=== PATIENT | female | born 1970 | race Caucasian/White ===

== ENCOUNTER 2016-06-06 03:07 | Observation (INO) ==
[2016-06-06] MEDS ORDERED: HYDROmorphone 2 MG/1 ML VIAL IV STA (04:55)
[2016-06-06] MEDS ORDERED: ONDANSETRON 4 MG/2 ML VIAL IV STA (04:55)
--- NOTE | 2016-06-06 04:59 | EKG Report ---
Stationary ECG Study [facility] Test Date: 06/06/2016 3:15:09 AM Pat Name: BOGDAN KLINE Department: Room: Gender: F Support Assistant: : 1970 Requested by: Katharine Toledo Order Number: [id number] Reading MD: VICKI FARLEY Intervals [place] Rate: 60 P: 62 ND: 119 QRS: 50 QRSD: 78 T: 12 QT: 417 QTc: 418 Interpretive Statements SINUS RHYTHM WITH SINUS ARRHYTHMIA WITH SHORT [place] INTERVAL Electronically Signed On 06-08-16 08:44:19 CDT by VICKI FARLEY [id number]
[2016-06-06] MEDS ORDERED: HYDROmorphone 2 MG/1 ML VIAL ONE (05:39)
[2016-06-06] MEDS ORDERED: ONDANSETRON 4 MG/2 ML VIAL ONE (05:40)
[2016-06-06] MEDS ORDERED: HYDROmorphone 2 MG/1 ML VIAL IV PRN (06:18)
--- NOTE | 2016-06-06 06:18 | Emergency Department Note ---
Steve Coughlin Mantricia, am scribing for, and in the presence of, Katharine Toledo DO 05:38. ITre Catherine, DO, personally performed the services described in this documentation, ascribed by Ifeoma Wilson in my presence, and it is both accurate and complete 618 . Arrival - Arrival Chief Complaint: Chest Pain ED Nursing Triage Note: Patient is a transfer from [facility] for further evaluation of chest pain. Hx of WPW and cervical cancer. Recieved GI cocktail, 4mg morphine, 4mg zofran, nitro tab, rocephin 1 gram, protonix 40mg, ASA 325mg, and inderal 40mg at previous facility. Denies nausea and vomiting at this time. Rates chest pain as a 6 on a scale from 0-10. Mode of Arrival: Stretcher Limitations: No Limitations Source: Patient Time Seen by Provider: 06/06/16 04:01 - History of Present Illness HPI Narrative: Pt is a 45 y/o white female arriving to ED by EMS with c/o chest pain that onset yesterday. Pt stated that she thought if she just went to work then her pain would go away, but it did not. She described pain as "something laying heavily on her chest." Along with this, pt has had a headache and nausea for 2 days. She is a transfer from [facility] for further evaluation of her chest pain. Pt has a Hx of HTN, WPW, and cervical cancer but denies DM and HLD.. She is currently on no medications for WCW. She was given a stress test by Dr. Dunlap approximately 2-3 years ago. Pt admits to smoking at least 1 pack of cigarettes per day. Pt has a FHx of heart problems. Onset (ago): hour(s) Consistency: constant Severity: mild Severity scale (1-10): 4 Date of Last Menstrual Period: hysterectomy Review of System - Review of System 12 point system: reviewed and no additional remarkable complaints except as stated - Review of System Constitutional: Absent: chills, diaphoresis, fever Eyes: Absent: discharge, pain, redness Head/Ears/Nose/Throat: Absent: earache Respiratory: Absent: cough, respiratory distress, wheezing Cardiovascular: Present: chest pain. Absent: palpitations, dyspnea on exertion Gastrointestinal: Absent: abdominal pain, nausea, vomiting, diarrhea Genitourinary female: Absent: abnormal menses, dysuria Musculoskeletal: Absent: arm pain, back pain, lower back pain, leg pain, neck pain Skin: Absent: rash, lesions Neurological: Absent: headache, weakness Psychiatric: Absent: anxiety, depression Medical,Surgical,& Family Hx - Medical History Cardio: History of: Cardiovascular Problems - Surgical History Surgical History: noncontributory - Family History Family History: Reports;: Family Heart Disease, Family Hypertension - Social History Smoking Status: Current every day smoker Have you smoked in the last 12 months: Yes Frequency of Alcohol Use: None Type of Drug Use: None Marital Status: Lives With:: Spouse Functional capacity: independent ambulation Exam Vital Signs: Vital Signs Temperature 97.9 F 06/06/16 03:11 Pulse Rate 61 06/06/16 03:11 Respiratory Rate 15 06/06/16 03:25 Blood Pressure 132/84 06/06/16 03:11 O2 Sat by Pulse Oximetry 98 06/06/16 03:11 - General General appearance: alert, in distress (States her chest hurts) - Head Head exam: Present: atraumatic, normocephalic, normal inspection - Eye Eye exam: Present: normal appearance, PERRL, EOMI - ENT ENT exam: Present: normal exam, normal oropharynx, mucous membranes moist, TM's normal bilaterally, normal external ear exam - Neck Neck exam: Present: normal inspection, full ROM, trachea midline. Absent: tenderness - Chest Chest inspection: Present: normal inspection, symmetric chest wall rise. Absent : tenderness - Respiratory Respiratory exam: Present: normal lung sounds bilaterally - Cardiovascular Cardiovascular exam: Present: regular rate, normal rhythm, normal heart sounds - Abdominal Exam Abdominal exam: Present: soft, normal bowel sounds. Absent: distention, tenderness, guarding, rebound - Extremities Exam Extremities exam: Present: normal inspection, full ROM, normal capillary refill. Absent: tenderness, pedal edema - Back Exam Back exam: Present: normal inspection, full ROM. Absent: tenderness - Neurological Exam Neurological exam: Present: alert, oriented X3, CN II-XII intact, normal gait - Psychiatric Psychiatric exam: Present: normal affect, normal mood - Skin Skin exam: Present: warm, dry, intact, normal color Course Course Narrative: This is a 45-year-old female comes in the ER today as a transfer from another facility for evaluation of chest pain. She has a history of Jennifer-Parkinson- White and saw Dr. Dunlap about 3 or 4 years ago at that time she had a stress test and stated they did not find anything except the arrhythmia. She reports her pain started yesterday and has been persistent. She was evaluated at the other facility where her EKG and her enzymes were negative but they were having trouble managing her pain. She was sent here for further evaluation and cardiac treatment. Physical exam the patient is awake alert her vital signs are stable HEENT exam is normal her neck is supple heart is regular rate and rhythm her lungs are clear in the anterior kwan are abdomen is rounded soft nontender I cannot reproduce her pain with palpation in the epigastric area. Her abdomen is otherwise soft nontender extremities are intact her neurologic exam is nonfocal treatment included an EKG which does not show any acute processing. I gave her some different pain medication that she is doing a little better at this time. I did place a phone call to Dr. Lozada who is on -call for cardiology we will be placing the patient in observation for cardiac rule out. - Consultations Consultation #1: Dr. Lozada called and we discussed the case - patient will be admitted for cardiac observation Time: 06:17 Results - Labs Lab Results: I have reviewed the patients labs Labs: reviewed lab from the other facility - EKG EKG results: interpreted by DENNIS CLARK, sinus rhythm Disposition Clinical Impression: Chest pain Case discussed with: patient Disposition: Still a Patient Condition: Stable Time of Disposition: 06:17
--- NOTE | 2016-06-06 08:07 | EKG Report ---
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
[2016-06-06] MEDS ORDERED: FAMOTIDINE 20 MG TABLET PO ONE (10:29)
[2016-06-06] MEDS ORDERED: PANTOPRAZOLE 40 MG TABLET PO SCH (10:30)
--- NOTE | 2016-06-06 12:10 | Cardiology History & Physical ---
Assessment and Plan (1) Chest pain Status: Acute Current Visit: Yes (2) WPW (Netrr-Apvqxjeni-Kparm syndrome) Status: Chronic Current Visit: Yes (3) Hypertension Status: Chronic Current Visit: Yes History of Present Illness Chief complaint: cp History of present illness: Ms. Rodriguez is a 45 year old female with a history of Ghrkj-Szedzptai-Cgojh status post ablation at the age of 19. She also has a history of hypertension. She presented to the emergency room with chest discomfort. She was awoken with symptoms of heart racing, and then had a significant chest pressure. Her symptoms continue to wax and wane for many hours throughout the day, they were not alleviated with aspirin or antacids. There were no clear triggers, alleviators or associated symptoms. She came to the emergency room for further evaluation and treatment. Nitroglycerin did not affect her symptoms per se. However, they resolve spontaneously. She has not experienced a these before, and they are not recurring. She does not take any medications routinely because she does not have health insurance and she was unable to "keep up with doctor visits". She has not been checking her blood pressure at home. It is currently not elevated here. Impression: 1. Chest pressure-in general her symptoms are atypical of cardiac disease. She has ruled out for myocardial infarction. We will treat her with a proton pump inhibitor and have her ambulate the hallways. If she is feeling better we will discharge her home later today. 2. Hypertension-she is currently not hypertensive and not on medications. 3. Okyyk-Vctebqprq-Ickih-she is status post ablation in the remote past. We will have to monitor her symptoms of palpitations. 4. Medication noncompliance. Home Medications Medication Instructions Recorded Confirmed Type No Known Home Medications [No 06/06/16 06/06/16 History Known Home Medications] Allergies Allergy/AdvReac Type Severity Reaction Status Date / Time codeine AdvReac Cramping Verified 06/06/16 07:36 of the Muscles 12 point system: reviewed and no additional remarkable complaints except as stated Medical,Surgical,& Family Hx - Medical History Cardio: History of: Cardiac Dysrhythmia (WPW s/p ablation at age 19), Hypertension, Cardiovascular Problems ([place]-ABLATION DONE IN [place].) Neurology: History of: Cerebrovascular Accident (LEFT SIDED WEAKNESS) Musculoskeletal: History of: Back/Neck Problems (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) Other: History of: Cancer (CERVICIAL CANCER) - Surgical History Abdominal Surgeries: Surgical HX of: Appendectomy, Cholecystectomy, Hernia Repair Reproductive Surgeries: Surgical HX of;: Hysterectomy (PARITAL) - Family History Family History: Reports;: Family Diabetes, Family Heart Disease, Family Hypertension Denies;: Family Cancer, Family Stroke - Social History Smoking Status: Current every day smoker Frequency of Alcohol Use: None Type of Drug Use: None Marital Status: Lives With:: Spouse Functional capacity: independent ambulation Cardiology Physical Exam - Constitutional Vitals: Vital Signs Temp Pulse Resp BP Pulse Ox 98 F 72 20 95/54 90 L 06/06/16 11:57 06/06/16 11:57 06/06/16 11:57 06/06/16 11:57 06/06/16 11:57 Intake and Output 06/05/16 06/06/16 06/06/16 23:59 07:59 15:59 Other: Weight 71.668 kg Patient Weight 06/06/16 23:59 Weight 71.668 kg Exam: General appearance: normal weight, no acute distress - Head Head exam: Present: normal inspection, normocephalic, atraumatic. Absent: hematoma, laceration - Eye Eye exam: Present: EOMI. Absent: conjunctival injection, nystagmus, periorbital swelling, scleral icterus, laceration to eyelids Pupils: Present: PERRL. Absent: constricted, dilated, fixed, irregular, unequal - ENT ENT exam: Present: normal exam, normal external ear exam - Neck Neck exam: Present: normal inspection. Absent: lymphadenopathy, meningismus, tenderness, thyromegaly - Respiratory Respiratory exam: Present: clear to auscultation bilaterally. Absent: accessory muscle use, chest wall tenderness - Cardiovascular Cardiovascular exam: Present: regular rate and rhythm. Absent: carotid bruit, gallop, JVD, rubs - GI/Abdominal GI/Abdominal exam: Present: normal bowel sounds, soft. Absent: distended, firm , guarding, hernia, mass, tenderness, rebound. - Extremities Exam Extremities exam: Present: normal inspection, normal capillary refill. Absent: calf tenderness, edema - Back Exam Back exam: Present: normal inspection. Absent: muscle spasm, vertebral tenderness - Neurological Exam Neurological exam: Present: alert, oriented X3, grossly intact without resting or intention tremor - Psychiatric Psychiatric exam: Present: normal affect, normal mood - Skin Skin exam: Present: normal color, warm, dry, intact. Absent: cyanosis, diaphoretic, rash, urticaria Result/EKG - Labs Lab Results: I have reviewed the past 24 hour labs (These are reviewed from the outside hospital papers) Labs: Laboratory Results - last 24 hr 06/06/16 07:36 Troponin I < 0.015 - EKG EKG results: interpreted by me, sinus rhythm
--- NOTE | 2016-06-06 12:18 | EKG Report ---
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
[2016-06-06] MEDS ORDERED: KETOROLAC 30 MG/1 ML VIAL IV ONE (14:19)
--- NOTE | 2016-06-06 15:14 | XRay Report ---
Exam: XR chest 2V Indication: midline chest pain Comparison study: 01/22/2009 Findings: The heart, mediastinum and bony structures are stable from prior. There is no focal consolidation, pneumothorax or pleural effusion identified. Impression: No acute cardiopulmonary process. No significant change from prior. PROCEDURE INTERPRETED AT [facility] DEPARTMENT OF RADIOLOGY Final Report Signed by: Cezar Witt
[2016-06-06] MEDS: ASPIRIN CHEW 81 MG TABLET PO SCH (15:31)
[2016-06-06] MEDS: ONDANSETRON 4 MG/2 ML VIAL IV PRN (15:32)
--- NOTE | 2016-06-06 16:25 | ECHO Report ---
Nia Rodriguez Exam Date: 06/06/2016 15:20 Referring Physician: Technologist: Nia Coates LRCP Age: 45 Ht (in): 62 Wt (lb): 158 Gender: F Exam Location: [facility] Echo Indications: chest pain, WPW, hypertension BP: 95 / 54 HR: 72 Rhythm: Sinus Technical Quality: Fair IMPRESSIONS Normal LV systolic and diastolic function, ejection fraction 55-60%. Mild tricuspid regurgitation. MEASUREMENTS (Male / Female) Normal Values 2D ECHO LV Diastolic Diameter PLAX 4.0 cm 4.2 - 5.9 / 3.9 - 5.3 cm LV Systolic Diameter PLAX 2.6 cm LV Fractional Shortening PLAX 35.3 % IVS Diastolic Thickness 1.1 cm 0.6 - 1.0 / 0.6 - 0.9 cm LVPW Diastolic Thickness 1.1 cm 0.6 - 1.0 / 0.6 - 0.9 cm RV Internal Dim ED PLAX 1.8 cm Aortic Root Diameter 2.0 cm LA Systolic Diameter LX 3.1 cm 3.0 - 4.0 / 2.7 - 3.8 cm DOPPLER TR Peak Velocity 242.0 cm/s TR Peak Gradient 23.4 mmHg FINDINGS Left Ventricle Normal left ventricular cavity size. Left ventricular ejection fraction is estimated at 55-60%. Right Ventricle Normal right ventricular size and systolic function. Right Atrium Normal right atrial size. Left Atrium Normal left atrial size. Mitral Valve Mild mitral valve sclerosis. Aortic Valve The aortic valve is trileaflet, delicate and has normal motion. Tricuspid Valve Morphologically normal tricuspid valve. Mild tricuspid valve regurgitation. Tricuspid regurgitation velocities suggest a PAP of 23.4 mmHg + RAP. Pulmonic Valve Morphologically normal pulmonic valve. Pericardium No pericardial effusion. Aorta Normal size aortic root and proximal ascending aorta. Cyndy Lozada MD (Electronically Signed) Final Date: 06 June 2016 16:24
[2016-06-06] MEDS: PANTOPRAZOLE 40 MG TABLET PO SCH (21:48)
[2016-06-07 04:36] LABS: Basophils % 0.1 % (0.0-0.8); Eosinophils # 0.1 10*3/uL (0.0-0.87); Eosinophils % 0.6 % (0.00-10.9); Hematocrit 36.7 VOL% (35.7-47.0); Hemoglobin 12.2 GM/DL (12.0-16.0); Immature Granulocytes % 0.4 %; Immature Granulocytes Absolute 0.04 #; Lymphocytes # 3.3 10*3/uL (1.4-4.0); Lymphocytes % 35.3 % (21.3-54.2); Mean Corpuscular HGB Conc 33.2 GM/DL (32-36); Mean Corpuscular Hemoglobin 29 PG (27-34); Mean Corpuscular Volume 87.6 FL (87-102); Mean Platelet Volume 12.2 FL (9.6-12.0); Monocytes # 0.7 10*3/uL (0.11-0.8); Monocytes % 7.1 % (1.7-12.7); Neutrophils # 5.2 10*3/uL (1.4-7.4); Neutrophils % 56.5 % (38.7-73.9); Platelet Count 168 T/CUMM (130-400); Red Blood Count 4.19 MC/CUMM (3.8-5.5); Red Cell Distribution Width 12.9 % (9.3-17.3); White Blood Count 9.2 T/CUMM (4-12)
[2016-06-07 05:08] LABS: Calcium 8.4 MG/DL (8.5-10.1); Magnesium 2.2 MG/DL (1.8-2.4); Osmolality,Calculated 278.5 MOS/KG (273-304); Potassium 4.4 MMOL/L (3.5-5.1); Risk Ratio 4.11
--- NOTE | 2016-06-07 07:49 | EKG Report ---
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
[2016-06-07] MEDS: ONDANSETRON 4 MG/2 ML VIAL IV PRN ×2 (08:23→14:38)
[2016-06-07] MEDS: PANTOPRAZOLE 40 MG TABLET PO SCH (08:23)
[2016-06-07] MEDS: ASPIRIN CHEW 81 MG TABLET PO SCH (08:23)
[2016-06-07] MEDS ORDERED: ACETAMINOPHEN 325 MG TABLET PO PRN (09:56)
[2016-06-07] MEDS ORDERED: ONDANSETRON 4 MG/2 ML VIAL IV ONE (10:02)
[2016-06-07] MEDS: MEPERIDINE 25 MG/1 ML VIAL IV PRN ×2 (10:10→14:38)
--- NOTE | 2016-06-07 16:16 | Discharge Summary ---
Hospital Course - Hospital Course Hospital Course: The patient is a 45-year-old white female with a history of WPW, status post ablation in the remote past. She was admitted to the hospital with atypical chest pain. She ruled out for myocardial infarction, and echocardiogram was unremarkable. She had an ongoing migraine for 4 days and required IV pain medication to alleviate this. She is going home in stable condition and will follow up with Dr. Dunlap as an outpatient. Noninvasive stress testing can be considered. Diagnosis - Discharge Diagnosis (1) Chest pain Status: Acute (2) WPW (Wwtaf-Eabihtguy-Jwrkt syndrome) Status: Chronic (3) Hypertension Status: Chronic Discharge Plan - Discharge Data Disposition: Disch To Home/Self Care Discharge Diet: heart healthy Hygiene: no restrictions Driving: no restrictions - Discharge Medications New Aspirin Chew Tab 81 mg PO DAILY #30 tablet Pantoprazole Tab [Protonix Tab] 40 mg PO BID #30 tablet - Follow Up or Referral Follow Up: Miguel Dunlap MD [Physician] - 2 Weeks - Forms/Instructions Additional Discharge Instructions: Please call in Patient Rx. No pharmacy is in computer. Exam - Constitutional Vitals: Period Temp Pulse Resp BP Sys/[place] Pulse Ox Last 24 Hr 97.5 F-98.7 F 68-78 16-20 110-128/59-69 94-96 Exam: General appearance: normal weight, no acute distress - Head Head exam: Present: normal inspection, normocephalic, atraumatic. Absent: hematoma, laceration - Eye Eye exam: Present: EOMI. Absent: conjunctival injection, nystagmus, periorbital swelling, scleral icterus, laceration to eyelids Pupils: Present: PERRL. Absent: constricted, dilated, fixed, irregular, unequal - ENT ENT exam: Present: normal exam, normal external ear exam - Neck Neck exam: Present: normal inspection. Absent: lymphadenopathy, meningismus, tenderness, thyromegaly - Respiratory Respiratory exam: Present: clear to auscultation bilaterally. Absent: accessory muscle use, chest wall tenderness - Cardiovascular Cardiovascular exam: Present: regular rate and rhythm. Absent: carotid bruit, gallop, JVD, rubs - GI/Abdominal GI/Abdominal exam: Present: normal bowel sounds, soft. Absent: distended, firm , guarding, hernia, mass, tenderness, rebound. - Extremities Exam Extremities exam: Present: normal inspection, normal capillary refill. Absent: calf tenderness, edema - Back Exam Back exam: Present: normal inspection. Absent: muscle spasm, vertebral tenderness - Neurological Exam Neurological exam: Present: alert, oriented X3, grossly intact without resting or intention tremor - Psychiatric Psychiatric exam: Present: normal affect, normal mood - Skin Skin exam: Present: normal color, warm, dry, intact. Absent: cyanosis, diaphoretic, rash, urticaria Discharge Results Procedures and tests throughout hospitalization: Pending Orders 06/08/16 04:00 Basic Metabolic Panel w/Mg IN AM 06/09/16 04:00 Basic Metabolic Panel w/Mg IN AM Labs on day of discharge: Labs from last 24 hours 06/07/16 06/07/16 04:16 04:16 WBC 9.2 RBC 4.19 Hgb 12.2 Hct 36.7 MCV 87.6 MCH 29 MCHC 33.2 RDW 12.9 Plt Count 168 MPV 12.2 H Neut % (Auto) 56.5 Lymph % (Auto) 35.3 [place] % (Auto) 7.1 Eos % (Auto) 0.6 Baso % (Auto) 0.1 Neut # (Auto) 5.2 Lymph # (Auto) 3.3 [place] # (Auto) 0.7 Eos # (Auto) 0.1 Baso # (Auto) 0.0 Immature Gran % 0.4 Nucleated RBC % 0.0 Immature Gran # 0.04 Nucleated RBCs # 0.00 Sodium 139 Potassium 4.4 Chloride 109 H Carbon Dioxide 24 Anion Gap 10.4 BUN 20 H Creatinine 0.80 GFR Calculation 88 BUN/Creatinine Ratio 25.00 H Glucose 89 Calculated Osmolality 278.5 Calcium 8.4 L Magnesium 2.2 Triglycerides 145 Cholesterol 144 LDL Cholesterol 96.0 VLDL Cholesterol 29.0 HDL Cholesterol 35 L Heart Disease Risk Ratio 4.11 DS: Provider Date of admission: 06/06/16 06:18 Primary care physician: . No PCP Attending physician on admission: Cyndy Lozada, Discharging clinician: Cyndy Lozada, Expected date of discharge: 06/07/16
[2016-06-07 16:39] VITALS: BP 115/55
== END 2016-06-07 17:14 | disposition home or self-care (01) ==
LOC: EDUNIT# → EDBD → N.EDINP 03:07 → N.ED 03:07 → N.TELES 06:57
PROVIDERS: ADMIT Internal Medicine Cardiovascular Disease; ATTEND Internal Medicine Cardiovascular Disease

== ENCOUNTER 2019-12-06 16:00 | Observation (INO) ==
[2019-12-06] MEDS ORDERED: ONDANSETRON 4 MG/2 ML VIAL IV STA (16:51)
[2019-12-06 16:54] LABS: Basophils % 0.2 % (0.0-0.8); Eosinophils % 0.2 % (0.00-10.9); Hematocrit 47.6 VOL% (35.7-47.0); Hemoglobin 16.3 GM/DL (12.0-16.0); Immature Granulocytes % 0.3 %; Immature Granulocytes Absolute 0.04 #; Lymphocytes # 3.1 10*3/uL (1.4-4.0); Lymphocytes % 23.5 % (21.3-54.2); Mean Corpuscular HGB Conc 34.2 GM/DL (32-36); Mean Corpuscular Volume 86.5 FL (87-102); Mean Platelet Volume 11.3 FL (9.6-12.0); Monocytes % 9.3 % (1.7-12.7); Neutrophils % 66.5 % (38.7-73.9); Platelet Count 259 T/CUMM (130-400); Red Cell Distribution Width 13.2 % (9.3-17.3)
[2019-12-06 17:10] LABS: Bilirubin,Urine Negative (Negative); Blood, Urine Small mg/dL (Negative); Glucose,Urine (UA) Negative (Negative); Ketones,Urine Negative (Negative); Mucus,Urine Moderate /LPF (Occasional); Nitrite,Urine Negative (Negative); Protein,Urine Negative; RBC,Urine 13 /HPF (0-4); Squamous Epithelial Cell,Urine Moderate /HPF (0-10); Urine Appearance CLOUDY (Clear); Urine Color Yellow (Yellow); Urine Specific Gravity 1.008 (1.001-1.035); Urine Urobilinogen < 2.0 EU/DL (0.2-1.0); WBC,Urine 4 /HPF (0-6)
[2019-12-06 17:20] LABS: Albumin 4.1 G/DL (3.4-5.0); Bilirubin,Total 0.5 MG/DL (0.2-1.0); Calcium 10.5 MG/DL (8.5-10.1); Osmolality,Calculated 277.4 MOS/KG (273-304); Total Protein 7.6 G/DL (6.4-8.3)
[2019-12-06] MEDS ORDERED: HYDROmorphone 2 MG/1 ML VIAL IV STA (17:42)
[2019-12-06] MEDS ORDERED: SODIUM CHLORIDE 0.9% 1,000 ML IV STA (17:42)
[2019-12-06] MEDS ORDERED: hydrALAZINE 20 MG/1 ML VIAL IV PRN (18:19)
[2019-12-06] MEDS ORDERED: GLUCAGON 1 MG VIAL IM PRN (18:19)
[2019-12-06] MEDS ORDERED: DEXTROSE 50% 25 GM/50 ML VIAL IV PRN (18:19)
[2019-12-06 18:38] LABS: Barbiturates Screen,Urine Negative (Negative); Benzodiazepines Screen,Urine Negative (Negative); Cannabinoid Screen,Urine Negative (Negative); Opiate Screen,Urine Negative (Negative); Phencyclidine Screen,Urine Negative (Negative)
[2019-12-06] MEDS ORDERED: CIPROFLOXACIN 400 MG/200 ML PREMIX IV ONE (19:08)
[2019-12-06] MEDS: CIPROFLOXACIN INJ 400 MG in PREMIX 1 EACH IV SCH (19:25)
[2019-12-06] MEDS ORDERED: INFLUENZA VIRUS VACCINE 0.5 ML SYRINGE IM ONE (20:34)
[2019-12-06] MEDS ORDERED: ENOXAPARIN 40 MG/0.4 ML SYRINGE SUBCUT SCH (21:00)
[2019-12-06] MEDS: SODIUM CHLORIDE 0.9% 1,000 ML IV SCH (21:45)
[2019-12-06] MEDS: metroNIDAZOLE INJ 500 MG in PREMIX 1 EACH IV SCH (21:48)
[2019-12-06] MEDS: HYDROmorphone 2 MG/1 ML VIAL IV PRN (21:49)
[2019-12-06] MEDS: FAMOTIDINE 20 MG/2 ML VIAL IV SCH (21:53)
[2019-12-07] MEDS: SODIUM CHLORIDE 0.9% 1,000 ML IV SCH ×2 (00:54→06:03)
[2019-12-07] MEDS: HYDROmorphone 2 MG/1 ML VIAL IV PRN (02:53)
[2019-12-07] MEDS: metroNIDAZOLE INJ 500 MG in PREMIX 1 EACH IV SCH (03:34)
[2019-12-07] MEDS: CIPROFLOXACIN INJ 400 MG in PREMIX 1 EACH IV SCH (06:04)
[2019-12-07 06:20] LABS: Basophils % 0.2 % (0.0-0.8); Eosinophils # 0.1 10*3/uL (0.0-0.87); Eosinophils % 0.7 % (0.00-10.9); Hematocrit 38.2 VOL% (35.7-47.0); Hemoglobin 12.5 GM/DL (12.0-16.0); Immature Granulocytes % 0.3 %; Immature Granulocytes Absolute 0.03 #; Lymphocytes # 4.2 10*3/uL (1.4-4.0); Mean Corpuscular HGB Conc 32.7 GM/DL (32-36); Mean Corpuscular Volume 89.3 FL (87-102); Mean Platelet Volume 12.1 FL (9.6-12.0); Monocytes % 9.2 % (1.7-12.7); Neutrophils % 45.6 % (38.7-73.9); Platelet Count 186 T/CUMM (130-400); Red Blood Count 4.28 MC/CUMM (3.8-5.5); Red Cell Distribution Width 13.3 % (9.3-17.3); White Blood Count 9.5 T/CUMM (4-12)
[2019-12-07 06:26] LABS: Albumin 2.8 G/DL (3.4-5.0); Bilirubin,Total 0.6 MG/DL (0.2-1.0); Calcium 8.4 MG/DL (8.5-10.1); Osmolality,Calculated 280.1 MOS/KG (273-304); Total Protein 5.7 G/DL (6.4-8.3)
[2019-12-07 06:30] LABS: Atypical Lymphocytes Few; Hypochromasia 1+; Lymphocytes 44 % (20-55); Segmented Neutrophils 49 % (50-85); Total Cells Counted 100
[2019-12-07 06:31] LABS: Microcytosis Slight; Platelet Estimate Adequate
[2019-12-07 06:45] LABS: Risk Ratio 5.52; Thyroid Stimulating Hormone 2.32 uIU/ml (0.358-3.74); VLDL CHOLESTEROL 33.2 MG/DL
[2019-12-07] MEDS ORDERED: cefTRIAXone 1,000 MG in SYRINGE 1 EACH IV SCH (09:00)
[2019-12-07] MEDS ORDERED: THIAMINE 200 MG/2 ML VIAL IV SCH (09:00)
[2019-12-07] MEDS: FAMOTIDINE 20 MG/2 ML VIAL IV SCH (09:33)
[2019-12-07] MEDS ORDERED: POTASSIUM CHLORIDE 20 MEQ TABLET PO ONE (10:00)
[2019-12-07] MEDS ORDERED: MAGNESIUM SULF RIDER 2 GM in PREMIX 1 EACH IV ONE (10:00)
[2019-12-07 11:47] VITALS: BP 111/74
[2019-12-07] MEDS ORDERED: ROSUVASTATIN 10 MG TABLET PO SCH (21:00)
== END 2019-12-07 14:35 | disposition home or self-care (01) ==
LOC: N.ED 16:00 → N.EDINP 16:00 → N.3E 19:58
PROVIDERS: ADMIT Hospitalist; ATTEND Hospitalist